=== PATIENT | female | born 1950 | race Caucasian/White ===

== ENCOUNTER 2017-01-03 09:38 | Outpatient (CLI) | payer MEDICARE, MEDICAID ==
--- NOTE | 2017-01-03 15:13 | MRI ---
MRI LEFT SHOULDER WITHOUT CONTRAST: Date: 01/03/17 HISTORY: Left shoulder pain, M25.512. Loss of range of motion for 2-3 months. COMPARISON: None. FINDINGS: Biceps Tendon: There is extensive extra-articular biceps tenosynovitis. There is interstitial tearing of the extra- articular biceps tendon. There is also extensive interstitial tearing of the intra-articular biceps tendon with likely a complete tear of the interarticular tendon with waviness. Labrum: There is tearing at the anterior and superior labrum extending to the biceps labral anchor. Rotator Cuff: There is a focal central perforation of the supraspinatus tendon mid fibers measuring approximately 1.0 cm in AP dimension at the footplate with some retraction of fibers approximately 8.0 mm. There i s extensive undersurface tearing of the remainder of the supraspinatus and infraspinatus tendon with some early scar in situ. There is extensive interstitial and undersurface tearing of the subscapula ris. Muscles: There is 30-40% atrophy of the supraspinatus. There is also atrophy of the teres minor. Bones: Large subchondral cyst formation and osteophyte formation at the anterior glenoid. There are also sm all osteophytes of the humeral head/neck. Moderate osteoarthritic disease of the acromioclavicular joint. Soft Tissues: There is edema of the rotator interval, as well as scarring along the rotator interval and abnormal thickening of the inferior glenohumeral ligament. Large subacromial/subdeltoid bursal effusion. IMPRESSION: 1. Complete muscle atrophy of the teres minor can be seen with quadrilateral space syndrome. No mas s is seen on this examination. 2. Focal full thickness perforation of the supraspinatus mid 1.0 cm fibers with 30-40% atrophy of t he muscle. 3. Extensive interstitial and deep tearing of the subscapularis. 4. Extensive tenosynovitis of the extra-articular biceps tendon with likely an intr-aarticular full thickness tear with scarring. 5. Superior labral tear from 11-1 o'clock seen to the biceps labral anchor. 6. Subchondral cyst formation inferior glenoid along with humeral head/neck junction. 7. Capsulitis. 8. Large subacromial/subdeltoid bursal effusion. 9. Extensive tendinosis and undersurface tearing at the supraspinatus and infraspinatus tendons. POS: [facility]
== END 2017-01-03 09:39 | disposition home or self-care (01) ==
LOC: SCSMRI 09:38
PROVIDERS: ATTEND Internal Medicine
DX: M25.512 Pain in left shoulder (principal); S43.492A Other sprain of left shoulder joint, initial encounter; M75.02 Adhesive capsulitis of left shoulder; M25.412 Effusion, left shoulder; M65.812 Other synovitis and tenosynovitis, left shoulder; S46.212A Strain of muscle, fascia and tendon of other parts of biceps, left arm, initial encounter

== ENCOUNTER 2017-01-21 18:11 | Inpatient (IN) | payer MEDICARE, MEDICAID ==
[2017-01-21] MEDS ORDERED: methylPREDNISolone Sod Succ/PF 125 MG/2 ML VIAL ONE (20:26)
[2017-01-21] MEDS ORDERED: Water For Inject, Bacteriostat 30 ML ONE (20:26)
--- NOTE | 2017-01-21 20:28 | RAD ---
FRONTAL RADIOGRAPH CHEST 01/21/17 COMPARISON: 01/18/17 HISTORY: Weakness. FINDINGS: No pneumothorax, pleural fluid, focal consolidation or alveolar edema. Heart and mediastinal contour s are unremarkable. IMPRESSION: No acute findings. POS: [facility]
[2017-01-21 20:31] LABS: Hematocrit 29.5 % (36.0-47.0); Mean Platelet Volume 11.3 fL (7.4-10.4); Red Blood Cell (RBC) Count 3.01 mill/uL (4.20-5.40)
[2017-01-21 20:42] LABS: Lactic Acid - Sepsis 1.6 mmol/L (0.5-2.2)
[2017-01-21 20:49] LABS: Band 14 % (5-11); Neutrophil 79 % (42-75)
[2017-01-21 20:52] LABS: Troponin I 0.075 ng/mL (< 0.028)
[2017-01-21 20:54] LABS: ALT (SGPT) 44 U/L (8-55); AST (SGOT) 14 U/L (5-34); Alkaline Phosphatase 139 U/L (40-150); BUN (Urea Nitrogen) 47 mg/dL (9.8-20.1); Bilirubin, Total 1.7 mg/dL (0.2-1.2); CK (CPK) 26 U/L (29-168); Calc. Creatinine Clearance 0 mL/min (70-130); Calcium 7.5 mg/dL (7.8-10.44); Carbon Dioxide 23 mmol/L (23-31); Chloride 102 mmol/L (98-107); Estimated GFR-MDRD 59; Globulin 2.7 g/dL (2.4-3.5); Lipase 17 U/L (8-78); Magnesium 1.9 mg/dL (1.6-2.6)
[2017-01-21 20:57] LABS: Bilirubin Small (Negative); Blood, Urine Negative (Negative); Glucose, Urine (Dipstick) Negative (Negative); Ketone, Urine Negative (Negative); Nitrite Negative (Negative); Protein, Urine (Dipstick) Negative (Neg-Trace)
[2017-01-21 20:57] LABS: Anion Gap 13 mmol/L (10-20)
[2017-01-21 20:59] LABS: Bacteria/HPF None Seen HPF (None Seen); Hyaline Casts/LPF 7-10 HYALINE CAST LPF (0-3 Hyaline); Squamous Epithelial 0-3 HPF (0-3); WBC/HPF 0-3 HPF (0-3)
[2017-01-21] MEDS ORDERED: Vancomycin HCl 1.5 GM in Sodium Chloride 0.9% 250 ML 300 ML IVPB SCH (21:15)
[2017-01-21 22:13] LABS: Fibrinogen 261 mg/dL (253-463); PTT 30.9 SEC (22.9-36.1); Prothrombin Time 15.3 SEC (12.0-14.7)
--- NOTE | 2017-01-21 23:29 | RAD ---
FRONTAL RADIOGRAPH CHEST PORTABLE UPRIGHT 01/21/17, 10:41 P.M. COMPARISON: 01/21/17, 8:12 p.m. HISTORY: Evaluate chest following line placement. FINDINGS: There is a new right sided vascular catheter, distal tip overlying the region of the cavoatrial junc tion. No pneumothorax, pleural fluid, lobar consolidation, or alveolar edema. IMPRESSION: No acute findings. POS: [facility]
[2017-01-21] MEDS ORDERED: Norepinephrine 8 MG/0.9% NS 0 ML ONE (23:34)
[2017-01-21] MEDS ORDERED: Norepinephrine 8 MG/0.9% NS 250 ML ONE (23:34)
[2017-01-22] MEDS ORDERED: Ondansetron HCl/PF 4 MG/2 ML Vial IVP PRN (00:10)
[2017-01-22] MEDS ORDERED: Acetaminophen 325 MG TAB PO PRN (00:10)
[2017-01-22] MEDS ORDERED: Norepinephrine 8 MG/0.9% NS 250 ML IVPB SCH (00:15)
[2017-01-22] MEDS ORDERED: Sodium Chloride 0.9% 1,000 ML IV SCH (00:15)
[2017-01-22] MEDS ORDERED: Potassium Chloride 20 MEQ TAB PO SCH (00:45)
[2017-01-22 01:16] LABS: IRF 0.488 Ratio (0.163-0.362); Reticulocyte Count 1.2 % (0.5-1.5)
[2017-01-22 01:32] LABS: Band 23 % (5-11); Hematocrit 33.5 % (36.0-47.0); Mean Platelet Volume 10.8 fL (7.4-10.4); Metamyelocyte 1 % (0-0); Neutrophil 72 % (42-75); Red Blood Cell (RBC) Count 3.42 mill/uL (4.20-5.40); White Blood Cell (WBC) Count 21.8 thou/uL (4.8-10.8)
[2017-01-22 01:39] LABS: Troponin I 0.056 ng/mL (< 0.028)
[2017-01-22] MEDS: Sodium Chloride 0.9% 1,000 ML IV SCH ×3 (02:10→17:57)
[2017-01-22 02:24] VITALS: BMI 31.6
[2017-01-22 04:59] LABS: ALT (SGPT) 38 U/L (8-55); AST (SGOT) 14 U/L (5-34); Alkaline Phosphatase 125 U/L (40-150); Anion Gap 14 mmol/L (10-20); BUN (Urea Nitrogen) 38 mg/dL (9.8-20.1); Bilirubin, Total 1.1 mg/dL (0.2-1.2); Calc. Creatinine Clearance 95 mL/min (70-130); Carbon Dioxide 19 mmol/L (23-31); Chloride 105 mmol/L (98-107); Estimated GFR-MDRD 74; Globulin 2.5 g/dL (2.4-3.5); Protein, Total 4.8 g/dL (6.0-8.3)
[2017-01-22 05:09] LABS: Band 18 % (5-11); Hematocrit 31.2 % (36.0-47.0); Mean Platelet Volume 10.6 fL (7.4-10.4); Neutrophil 78 % (42-75); Red Blood Cell (RBC) Count 3.18 mill/uL (4.20-5.40); White Blood Cell (WBC) Count 19.8 thou/uL (4.8-10.8)
[2017-01-22] MEDS ORDERED: ISOVUE-370 76%-LOCM 1 ML ONE (07:42)
--- NOTE | 2017-01-22 08:17 | ULT ---
RIGHT UPPER QUADRANT SONOGRAM: HISTORY: Right upper quadrant pain. FINDINGS: The gallbladder is surgically absent. The common duct is 0.6 cm in diameter. The liver is unremark able without focal mass or intrahepatic biliary dilatation. No free fluid is visible. IMPRESSION: Status post cholecystectomy. No significant abnormalities are demonstrated. POS: [facility]
--- NOTE | 2017-01-22 08:25 | CT ---
PRELIMINARY REPORT/[facility]/EMERGENCY AFTER HOURS PROCEDURE: EXAM: CT Angiography Chest With Intravenous Contrast CLINICAL HISTORY: 66 years old, female; Abnormal findings; Abnormal diagnostic tests; Elevated d-dimer; Patient HX: Er 8; D-dimer 2.78; 66 y/o f with presentation of weakness. Pt reports that she fell x2 yesterday due to weakness and is currently taking keflex for uti. Pt also reports rash, loss of appetite, and chills. Denies fever, pain anywhere, dysuria, any other complaints. TECHNIQUE: Axial computed tomographic angiography images of the chest with intravenous contrast using pulmonary embolism protocol. Oblique reformatted images were created and reviewed. CONTRAST: 58 mL of ISOVURE 370 administered intravenously. COMPARISON: No relevant prior studies available. FINDINGS: No definite filling defect to suggest the diagnosis of acute pulmonary embolus. No evidence of thoracic aortic dissection or focal aneurysm. Coronary artery calcifications are noted in the proximal left main coronary artery. No significant hilar or mediastinal lymphadenopathy. No evidence for pneumomediastinum or pneumothorax. Right lung: No significant parenchymal opacity or mass. No pleural fluid. Left lung: No significant parenchymal opacity or mass. No pleural fluid. Right jugular central venous catheter present, tip in the SVC. Images that include the upper abdomen appear essentially unremarkable. IMPRESSION: No evidence of acute pulmonary embolus. No evidence of thoracic aortic dissection or focal aneurysm. Coronary artery calcifications, details above. Essentially clear lungs, no pleural fluid. Other findings discussed above. Thank you for allowing us to participate in the care of your patient. Dictated and Authenticated by: Chance Jauregui MD 01/22/2017 2:37 AM Central Time ([place] \T\ [place]) FINAL REPORT CT ARTERIOGRAM CHEST WITH IV CONTRAST AND 3D MIP IMAGIN01/22/2017 0134 HOURS HISTORY: Performed on an emergency basis. Chest pain. Dyspnea. COMPARISON: None. FINDINGS: The findings agree with the preliminary report by Dr. Jauregui from [facility]. There is no CT evidence of pulmonary embolus. POS: [facility]
[2017-01-22] MEDS ORDERED: Famotidine/PF 20 mg/2ml Vial SLOW IVP SCH (09:00)
[2017-01-22] MEDS ORDERED: FLU VACC TS2017-18 (>65YR) 0.5 ML SYRINGE IM ONE (09:00)
[2017-01-22] MEDS: Vancomycin HCl 1.25 GM in Sodium Chloride 0.9% 250 ML 250 ML IVPB SCH ×2 (09:53→20:26)
[2017-01-22] MEDS: Famotidine 20 MG TAB PO SCH ×2 (09:54→20:20)
--- NOTE | 2017-01-22 12:59 | CON ---
DATE OF CONSULTATION: 01/22/2017 CONSULTING PHYSICIAN: [facility]. REASON FOR CONSULTATION: Hypotension. HISTORY OF PRESENT ILLNESS: The patient is a 66-year-old female who presented to the emergency room yesterday with generalized weakness. The patient had been diagnosed with urinary tract infection i n [place] several days ago and had been taking some antibiotics at home. She was found to be hypote nsive last night. She had a central line inserted. She was given fluids and was briefly on Levophe d, she is now better this morning. PAST MEDICAL HISTORY: 1. Chronic fatigue syndrome. 2. Arthritis. She denies any history of cardiovascular disease or COPD. PAST SURGICAL HISTORY: Cholecystectomy. SOCIAL HISTORY: Quit smoking 8 years ago. Does not consume alcohol. She lives at home by herself. ALLERGIES: None. MEDICATIONS PRIOR TO ADMISSION: [place], Vicoprofen and amlodipine and pramipexole. REVIEW OF SYSTEMS: Denies fever, chills, nausea, vomiting, chest pain, hematemesis, melena, hematoc hezia, hematuria, or dysuria. PHYSICAL EXAMINATION: VITAL SIGNS: Temperature 97.7, pulse 92, blood pressure 105/67, 24-hour intake 1187, output 350. HEENT: Unremarkable. NECK: Without adenopathy or JVD. She has a right IJ central line in place. LUNGS: Clear. CARDIOVASCULAR: S1, S2 regular, without murmur, rub or gallop. ABDOMEN: Soft and nontender. EXTREMITIES: Without clubbing, cyanosis, or edema. LABORATORY DATA: White blood cell count 19.8, hemoglobin 10, hematocrit 31.2, platelet count 79. I NR 1.2, PTT 30.9. Sodium 134, potassium 3.8, chloride 105, CO2 of 19, BUN 38, creatinine 0.7, gluco se 160. Albumin 4.8. Urinalysis showed some hyaline casts, moderate leukocyte esterase. ASSESSMENT: Sepsis syndrome/septic shock which is improved with IV fluid administration and the ant ibiotics. She has been weaned off the Levophed drip. RECOMMENDATIONS: I would recommend that the central line will be discontinued this afternoon if her blood pressure remains stable. I think she can probably be transferred to floor later this afterno on. I would continue her antibiotics. Thank you for the referral. We will follow.
[2017-01-22] MEDS: cefTRIAXone\\ROCEPHIN 1 GM, Syringe 0.4 ML in Sterile Water 9.6 ML IVPB SCH (20:21)
--- NOTE | 2017-01-22 23:36 | HP-2 ---
LOCATION: [facility] at [place], [place]. CO-SIGNER: Dr. David Galindo. CODE STATUS: FULL CODE. PRIMARY CARE PHYSICIAN: QUENTIN. ATTENDING PHYSICIAN: Dr. David Galindo. RESIDENT PHYSICIAN: Dr. Alvino Velasquez. HISTORIAN: Patient provided the history. CHIEF COMPLAINT: Weakness. HISTORY OF PRESENT ILLNESS: A 66-year-old female with past medical history of recent UTI, started o n Keflex approximately 2 weeks ago as well as history of chronic fatigue syndrome, osteoarthritis an d fibromyalgia, presents with a chief complaint of weakness. The patient reports signs and symptoms of weakness and dizziness have been present for about 2 weeks. It occurred shortly after she was d iagnosed with UTI and started on Keflex for treatment. Additionally, the patient complains of 1-2 d ay history of truncal rash. She denies itching or pain associated with the rash. The patient also admitted decreased appetite and poor p.o. intake over the last 2 weeks. The remainder of the review of systems is grossly benign. In the ER, the patient was given 3 liters of normal saline, 750 mg o f Levaquin, 2 grams of Rocephin, 1.5 grams of vancomycin and 125 mg of methylprednisolone. PAST MEDICAL HISTORY: Chronic fatigue syndrome, osteoarthritis and fibromyalgia. PAST SURGICAL HISTORY: Cholecystectomy. ALLERGIES: No known drug allergies. MEDICATIONS: 1. Vicoprofen 7.5/200 mg b.i.d. 2. [place] 10/325 q.8 hours p.r.n. 3. Black cohosh 20 mg p.r.n. 4. Benadryl 25 mg. 5. Keflex 500 mg q.6 hours. FAMILY HISTORY: Deferred. SOCIAL HISTORY: Prior smoker, nondrinker, no drugs. REVIEW OF SYSTEMS: GENERAL: Patient complains of fatigue, chills and appetite changes. Denies fever, sleep changes or night sweats. EYES: Patient denies vision changes. ENT: Denies nasal congestion, rhinorrhea or sore throat. RESPIRATORY: Denies cough, congestion or shortness of breath. CARDIOVASCULAR: Denies chest pain, palpitations or edema. GASTROINTESTINAL: Denies nausea, vomiting, diarrhea, constipation, abdominal pain or GI bleeding. SKIN: Complains of jaundice and rashes. Denies lesions. MUSCULOSKELETAL: Complains of pain, arthritis and arthralgias at her baseline. NEUROLOGIC: Complains of weakness. Denies numbness or syncope. PHYSICAL EXAMINATION: VITAL SIGNS: Blood pressure in the ED 88/56, pulse 95 beats per minute, respirations 16, T-max 97.7 , pulse ox 100% on room air and current weight 79 kilograms. GENERAL: The patient is alert and oriented x3, mildy distressed, well-developed, well-nourished and appropriately interactive. HEENT: Pupils are equal, round and reactive to light with accommodation. Extraocular muscles are i ntact. There is conjunctival icterus present. NECK: Supple, without lymphadenopathy, no thyromegaly. CARDIOVASCULAR: Regular rate and rhythm. No murmurs, rubs or gallops. Radial pulse 2+. Pedal pul se 2+. RESPIRATORY: Normal effort, no retractions. LUNGS: Clear to auscultation bilaterally. SKIN: Warm and dry. No cyanosis. There is a truncal erythematous maculopapular rash that is sloane hable as well as the lower extremity reticular pattern rash. ABDOMEN: Soft and nontender. Normoactive bowel sounds in all 4 quadrants. No masses, distention o r organomegaly appreciated. No shifting dullness. No fluid wave. EXTREMITIES: No clubbing, cyanosis or edema. MUSCULOSKELETAL: Structure is within normal limits. Tone within normal limits. NEUROLOGIC: No focal deficits. Sensation within normal limits. GCS 15. PSYCH: Appropriate. LABORATORY DATA: White blood cell count 23,000, hemoglobin 9.6, hematocrit 29.5 and platelets 85. Sodium 135, potassium 3.3, chloride 102, bicarbonate 23, BUN 47, creatinine 0.95, glucose 114, GFR i s 59, calcium 7.5, total protein 5.0, albumin 2.3, total bilirubin 1.7, AST 14, ALT 44, alkaline isacc sphatase 139, magnesium 1.9, lactic acid 1.6, lipase 17, troponin 0.075, CK-MB 2.1 and CK 26. 79% b ands and 14% neutrophils. Urinalysis showed moderate leukocyte esterase, 0 bacteria and small amoun t of bilirubin in the urine. X-RAY FINDINGS: Chest x-ray showed no acute findings. ASSESSMENT AND PLAN: 1. Septic shock, unknown source. Will continue broad-spectrum antibiotics. Patient will be admitt ed to the ICU and a right subclavian central venous line will be placed and patient will be given Le vophed to maintain a map greater than or equal to 60. Patient has a recent history of elevated LFTs that were not worked up. We will get a hepatitis panel; do a right upper quadrant ultrasound. Rep eat CMP, coag studies, check TSH, check a sedimentation rate as well as CRP and LUCY. 2. Normocytic anemia. Rule out hemolytic anemia. Bilirubin is 1.6. We will repeat a.m. CBC. We will check an LDH, haptoglobin. We will order peripheral smear, check Maxine direct antibody, check a reticulocyte count as well as a CRP, ESR and LUCY. 3. Thrombocytopenia. There is no evidence of active bleeding. We will check a DIC panel to rule o ut DIC. 4. Hyperbilirubinemia. We will rule out hepatic versus hemolytic anemia source. Order right upper quadrant ultrasound. 5. Elevated D-dimer. CTA of the chest. 6. Protein-calorie malnutrition. Albumin is 2.3. It is unclear if this is a simply ingestion issu e or a combination of ingestion and malabsorption. 7. Rash. We will check an RPR, HIV, ESR, CRP and LUCY. DISPOSITION AND THE LENGTH OF HOSPITAL STAY: Patient is guarded. Expected length of stay is greate r than or equal to 2 days. Symptomatic medications will be provided. History and physical exam as well as management was discussed with Dr. David Galindo who agrees wi th the above history, physical exam, assessment and plan unless otherwise noted in his addendum.
[2017-01-23] MEDS: Sodium Chloride 0.9% 1,000 ML IV SCH ×3 (01:21→14:37)
[2017-01-23 05:17] LABS: ALT (SGPT) 30 U/L (8-55); AST (SGOT) 14 U/L (5-34); Alkaline Phosphatase 104 U/L (40-150); Anion Gap 9 mmol/L (10-20); BUN (Urea Nitrogen) 23 mg/dL (9.8-20.1); Bilirubin, Total 0.9 mg/dL (0.2-1.2); Calc. Creatinine Clearance 109 mL/min (70-130); Calcium 6.9 mg/dL (7.8-10.44); Carbon Dioxide 20 mmol/L (23-31); Chloride 111 mmol/L (98-107); Estimated GFR-MDRD 88; Globulin 2.4 g/dL (2.4-3.5); Protein, Total 4.6 g/dL (6.0-8.3)
[2017-01-23 05:28] LABS: Band 22 % (5-11); Hematocrit 27.9 % (36.0-47.0); Mean Platelet Volume 10.5 fL (7.4-10.4); Neutrophil 68 % (42-75); Red Blood Cell (RBC) Count 2.82 mill/uL (4.20-5.40); Toxic Granulation SLIGHT; White Blood Cell (WBC) Count 13.6 thou/uL (4.8-10.8)
--- NOTE | 2017-01-23 07:26 | PDOC.FM ---
- Subjective Subjective: Pt feels better than yesterday but still tired. Has not been out of bed and using bedpan currently. Requesting PT eval. States new mouth sores at corner of her mouth present today although dry skin only seen. Afebrile. Tolerating PO. Rash improving per pt. - Objective MAR Reviewed: Yes Vital Signs & Weight: Vital Signs (12 hours) Temp Pulse Resp BP Pulse Ox 01/23/17 04:00 97.5 F L 82 20 92/68 98 01/23/17 00:07 92 L 01/22/17 23:45 97.8 F 70 18 102/58 L 92 L 01/22/17 21:30 97.8 F 70 18 107/68 93 L Weight Admit Weight 83.6 kg Weight 82.735 kg Most Recent Monitor Data Heart Rate from ECG 88 NIBP 93/63 NIBP BP-Mean 78 Respiration from ECG 21 SpO2 97 I&O: 01/22/17 01/23/17 01/24/17 07:59 06:59 06:59 Intake Total Output Total Balance Result Diagrams: 01/23/17 04:32 01/23/17 04:32 EKG Reviewed by me: Yes Radiology Reviewed by me: Yes <Rad Amaya - Last Filed: 01/23/17 07:25> - Objective Vital Signs & Weight: Vital Signs (12 hours) Temp Pulse Resp BP Pulse Ox 01/23/17 07:05 97.0 F L 71 18 105/71 92 L 01/23/17 04:00 97.5 F L 82 20 92/68 98 01/23/17 00:07 92 L 01/22/17 23:45 97.8 F 70 18 102/58 L 92 L Weight Admit Weight 184 lb 4.896 oz Weight 182 lb 6.4 oz Most Recent Monitor Data Heart Rate from ECG 88 NIBP 93/63 NIBP BP-Mean 78 Respiration from ECG 21 SpO2 97 I&O: 01/22/17 01/23/17 01/24/17 07:59 06:59 06:59 Intake Total Output Total Balance Result Diagrams: 01/23/17 04:32 01/23/17 04:32 <David Galindo - Last Filed: 01/23/17 10:40> Phys Exam - Physical Examination Constitutional: NAD HEENT: PERRLA, moist MMs Neck: no nodes, supple Respiratory: no wheezing, no rales, clear to auscultation bilateral Cardiovascular: RRR, no significant murmur Gastrointestinal: soft, non-tender, no distention, positive bowel sounds Musculoskeletal: no edema, pulses present Neurological: non-focal, moves all 4 limbs Psychiatric: A&O x 3 Deviation from normal: resolving maculopapular rash over b/l thighs and abdomen ; much improved now <Rad Amaya - Last Filed: 01/23/17 07:25> Dx/Plan (1) Septic shock due to undetermined organism Code(s): A41.9 - SEPSIS, UNSPECIFIED ORGANISM; R65.21 - SEVERE SEPSIS WITH SEPTIC SHOCK Status: Acute Plan: Presented with hypotension requiring pressors and leukocytosis with bands. CCU with central line but now d/c'ed and moved to floor. Mildly hypotensive but not requiring pressors. Still evaluating for source of infection. WBCs 23->13 but bandemia persists. Pt slowly feeling better. Rash appears to me related to recent cephalosporin use and/or viral exanthem rather than vasculitis or infectious picture. Continue IV abx and fluids. Await multiple tests. Dr. Mayo on board although no pulm/cardiac etiology suspected. (2) Chronic fatigue syndrome with fibromyalgia Code(s): R53.82 - CHRONIC FATIGUE, UNSPECIFIED; M79.7 - FIBROMYALGIA Status: Acute Plan: Hx of this. Symptoms of continued fatigue are her main complaint. Continue workup. (3) Conjugated hyperbilirubinemia Code(s): E80.6 - OTHER DISORDERS OF BILIRUBIN METABOLISM Status: Acute Plan: Recent hx of elevated AST/ALT in 100s at outside facility and T. bili elevated as well. Here, T. bili 2.0 and D. bili 1.0. Both have now normalized. With other signs concerning for hemolysis, this confounds. RUQ U/S negative. Hep panel neg. Await autoimmune studies, celiac, ferritin. (4) Normocytic anemia Code(s): D64.9 - ANEMIA, UNSPECIFIED Status: Acute Plan: With reticulocytopenia. Appears most likely post-infectious. Iron studies pending as well as B12, RBC folate. (5) Thrombocytopenia Code(s): D69.6 - THROMBOCYTOPENIA, UNSPECIFIED Status: Acute Plan: DIC suspected initially in light of elevated D-dimer but not likely unless considering chronic DIC with lab results. May be post-infectious as well. Await peripheral smear. May repeat DIC panel today although hemolysis labs negative currently. Platelets remain stable. (6) Hypoalbuminemia Code(s): E88.09 - OTH DISORDERS OF PLASMA-PROTEIN METABOLISM, NEC Status: Acute Plan: Very low. May be poor nutrition. Cont eval for liver pathology. (7) Drug reaction Code(s): T88.7XXA - UNSP ADVERSE EFFECT OF DRUG OR MEDICAMENT, INIT ENCNTR Status: Acute Plan: Suspect rash is from drug reaction or viral exanthem. Resolving. (8) D-dimer, elevated Code(s): R79.89 - OTHER SPECIFIED ABNORMAL FINDINGS OF BLOOD CHEMISTRY Status : Acute Plan: See above. No PE on CTA. No other blood clots suspected at this time. (9) Reticulocytopenia Code(s): R70.1 - ABNORMAL PLASMA VISCOSITY Status: Acute Plan: See above. (10) Fibromyalgia Status: Acute Plan: See #2. <Rad Amaya - Last Filed: 01/23/17 07:25> Attending Addendum - Attending Addendum I personally evaluated the patient and discussed the management with . [Chey Amaya] I agree with the History, Examination, Assessment and Plan documented above with any addition or exceptions noted below. Labs normalizing. Multiple other labs pending to determine etiology. PT today. <David Galindo - Last Filed: 01/23/17 10:40>
[2017-01-23 08:22] LABS: PTT 31.4 SEC (22.9-36.1); Prothrombin Time 16.1 SEC (12.0-14.7)
[2017-01-23] MEDS: Famotidine 20 MG TAB PO SCH (09:11)
[2017-01-23] MEDS: Vancomycin HCl 1.25 GM in Sodium Chloride 0.9% 250 ML 250 ML IVPB SCH (09:17)
--- NOTE | 2017-01-23 11:33 | PRG ---
DATE OF SERVICE: 01/23/2017 SUBJECTIVE: She says she feels better. OBJECTIVE: VITAL SIGNS: Temperature is 97.0, pulse 71, respirations 18, O2 sat 92%, and blood pressure 105/71. HEENT: Unremarkable. NECK: No JVD. CHEST: Fairly clear. CARDIAC: S1 and S2 regular. ABDOMEN: Soft. EXTREMITIES: No edema. LABORATORY DATA: White blood cell count 13.6, hematocrit 27.9, and platelet count 82. INR 1.3. So dium 136, potassium 3.8, BUN 23, creatinine 0.6, and glucose 117. Vitamin B12 level is greater than 2000. ASSESSMENT: Sepsis syndrome which improved after IV fluids. PLAN: She is continuing antibiotics. So far cultures show no growth to date. The source for jono parnell is not completely clear, but I do not think her antibiotics could likely be consolidated. Hopeful ly, she can go home tomorrow.
[2017-01-23 20:27] LABS: Vancomycin, Trough 17.6 ug/mL
[2017-01-23] MEDS: cefTRIAXone\\ROCEPHIN 1 GM, Syringe 0.4 ML in Sterile Water 9.6 ML IVPB SCH (20:32)
[2017-01-23] MEDS ORDERED: Pramipexole Di-HCl 0.25 MG TAB PO SCH (21:00)
[2017-01-24 05:34] LABS: ALT (SGPT) 32 U/L (8-55); AST (SGOT) 16 U/L (5-34); Alkaline Phosphatase 122 U/L (40-150); Anion Gap 12 mmol/L (10-20); BUN (Urea Nitrogen) 16 mg/dL (9.8-20.1); Calc. Creatinine Clearance 105 mL/min (70-130); Calcium 7.5 mg/dL (7.8-10.44); Carbon Dioxide 19 mmol/L (23-31); Chloride 109 mmol/L (98-107); Estimated GFR-MDRD 84; Globulin 2.8 g/dL (2.4-3.5); Protein, Total 5.3 g/dL (6.0-8.3)
[2017-01-24 05:51] LABS: Band 9 % (5-11); Hematocrit 33.8 % (36.0-47.0); Mean Platelet Volume 9.2 fL (7.4-10.4); Metamyelocyte 1 % (0-0); Neutrophil 76 % (42-75); Red Blood Cell (RBC) Count 3.43 mill/uL (4.20-5.40); White Blood Cell (WBC) Count 11.9 thou/uL (4.8-10.8)
--- NOTE | 2017-01-24 09:11 | PRG ---
DATE OF SERVICE: 01/24/2017 She feels better. She wants to go home. PHYSICAL EXAMINATION: VITAL SIGNS: Temperature 97.9, pulse 72, respirations 18, O2 sat 95%, blood pressure 120/66. HEENT: Unremarkable. NECK: No JVD. CHEST: Clear. CARDIAC: S1, S2 regular. ABDOMEN: Soft. EXTREMITIES: No edema. LABORATORY DATA: White blood cell count 11.9, hematocrit 33.8, platelet count 115. Sodium 136, pot assium 3.9, chloride 109, CO2 of 19, BUN 16, creatinine 0.7, glucose 94. Micro cultures show no jasen wth to date. ASSESSMENT: Sepsis syndrome - better; however, source unclear. PLAN: She does look stable enough to go home. I would complete 7 days of antibiotics -cephalospori ns should be good enough. She can follow up with her primary care doctor. Pulmonary will sign off the case.
[2017-01-24] MEDS ORDERED: Loperamide HCl 2 MG CAP PO PRN (10:27)
--- NOTE | 2017-01-24 10:29 | PDOC.FM ---
- Subjective Subjective: Patient reports she feels much better this morning. She is back to baseline and her fatigue is improved. Afebrile, VSS - Objective MAR Reviewed: Yes Vital Signs & Weight: Vital Signs (12 hours) Temp Pulse Resp BP Pulse Ox 01/24/17 07:25 97.9 F 72 18 121/66 95 01/24/17 07:05 97.9 F 72 18 95 01/24/17 05:27 94 L 01/24/17 05:03 97.5 F L 78 20 142/74 H 94 L 01/24/17 02:02 97.9 F 92 18 116/66 93 L Weight Admit Weight 83.6 kg Weight 82.735 kg Most Recent Monitor Data Heart Rate from ECG 88 NIBP 93/63 NIBP BP-Mean 78 Respiration from ECG 21 SpO2 97 I&O: 01/23/17 01/24/17 01/25/17 06:59 06:59 06:59 Intake Total Output Total Balance Result Diagrams: 01/24/17 05:10 01/24/17 05:09 <Juanito Ramos - Last Filed: 01/24/17 10:28> - Objective Vital Signs & Weight: Vital Signs (12 hours) Temp Pulse Resp BP Pulse Ox 01/24/17 07:25 97.9 F 72 18 121/66 95 01/24/17 07:05 97.9 F 72 18 95 01/24/17 05:27 94 L 01/24/17 05:03 97.5 F L 78 20 142/74 H 94 L 01/24/17 02:02 97.9 F 92 18 116/66 93 L Weight Admit Weight 83.6 kg Weight 82.735 kg Most Recent Monitor Data Heart Rate from ECG 88 NIBP 93/63 NIBP BP-Mean 78 Respiration from ECG 21 SpO2 97 I&O: 01/23/17 01/24/17 01/25/17 06:59 06:59 06:59 Intake Total Output Total Balance Result Diagrams: 01/24/17 05:10 01/24/17 05:09 <Nydia Walton - Last Filed: 01/24/17 11:33> Phys Exam - Physical Examination Constitutional: NAD HEENT: PERRLA, moist MMs Neck: no nodes, no JVD Respiratory: no wheezing, no rales, no rhonchi Cardiovascular: RRR, no significant murmur Gastrointestinal: soft, non-tender, no distention Neurological: moves all 4 limbs Psychiatric: normal affect, A&O x 3 <Juanito Ramos - Last Filed: 01/24/17 10:28> Dx/Plan (1) Septic shock due to undetermined organism Code(s): A41.9 - SEPSIS, UNSPECIFIED ORGANISM; R65.21 - SEVERE SEPSIS WITH SEPTIC SHOCK Status: Resolved Plan: Has resolved since admission after presenting with hypotension requiring pressor support. Central line has been discontinued and she is not requiring IVF. No source of infection found thus far, however flu screen not done. Leukocytosis has resolved. Will d/c IV abx and continue PO omnicef for 5 days (2) Chronic fatigue syndrome with fibromyalgia Code(s): R53.82 - CHRONIC FATIGUE, UNSPECIFIED; M79.7 - FIBROMYALGIA Status: Acute Plan: Patient reports more energy today and that she feels back to baseline (3) Conjugated hyperbilirubinemia Code(s): E80.6 - OTHER DISORDERS OF BILIRUBIN METABOLISM Status: Acute Plan: T. bili of 2.0 and D. bili of 1.0 on admission. Both have since normalized. RUQ U/S negative. Hep panel neg. Awaiting further autoimmune studies (4) Thrombocytopenia Code(s): D69.6 - THROMBOCYTOPENIA, UNSPECIFIED Status: Acute Plan: No longer concern for DIC. May be post-infectious etiology. We are awaiting peripheral smear. Platelets remain stable (5) Hypoalbuminemia Code(s): E88.09 - OTH DISORDERS OF PLASMA-PROTEIN METABOLISM, NEC Status: Acute Plan: Likely chronic issue 2/2 poor nutrition (6) D-dimer, elevated Code(s): R79.89 - OTHER SPECIFIED ABNORMAL FINDINGS OF BLOOD CHEMISTRY Status : Acute Plan: CTA negative - Plan Plan: d/c today on omnicef <Juanito Ramos - Last Filed: 01/24/17 10:28> Attending Addendum - Attending Addendum I personally evaluated the patient and discussed the management with Dr. Ramos on 01/24/17. I agree with the History, Examination, Assessment and Plan documented above with any addition or exceptions noted below. Markedly improved. Will discharge home on PO abx with close follow up. <Nydia Walton - Last Filed: 01/24/17 11:33>
[2017-01-24] MEDS ORDERED: Ibuprofen 800 MG TAB PO SCH (10:30)
[2017-01-24 13:27] VITALS: BP 137/72; TEMP 97.5
[2017-01-24 17:12] LABS: Folate,Hemolysate 352.3 ng/mL (Not Estab.); RBC Folate Test Component 1355 ng/mL (>498)
--- NOTE | 2017-01-25 19:31 | DIS-2 ---
DATE OF ADMISSION: 01/22/2017 DATE OF DISCHARGE: 01/24/2017 RESIDENT PHYSICIAN: Juanito Ramos M.D. ADMITTING ATTENDING: David Galindo M.D. DISCHARGE ATTENDING: Nydia Walton D.O. CONSULTS: 1. Pulmonology. 2. Physical therapy. PROCEDURES: Central line placed on 01/21/2017. PRIMARY DIAGNOSES: 1. Septic shock without a source. 2. Conjugated hyperbilirubinemia. 3. Elevated D-dimer. SECONDARY DIAGNOSES: 1. Chronic fatigue syndrome. 2. Fibromyalgia. 3. Normocytic anemia. 4. Osteoarthritis. DISCHARGE MEDICATIONS: 1. Amlodipine 2 mg p.o. daily. 2. Pramipexole 0.25 mg p.o. q.p.m. 3. Hydrocodone/acetaminophen 10/325 mg p.o. b.i.d. p.r.n. 4. Cefdinir 300 mg p.o. b.i.d. x5 days. DISCONTINUED MEDICATIONS: 1. Rocephin. 2. Levophed. 3. Vancomycin. 4. Levaquin. HISTORY OF PRESENT ILLNESS AND HOSPITAL COURSE: This is a 66-year-old female, presented to the ER with a chief complaint of fatigue and weakness. This issue has been slowly escalating for the last 2 weeks. This occurred shortly after she was diagnosed with UTI and started on Keflex. In the ER, the patient was evaluated and given 3 liters of normal saline, 750 mg of Levaquin, 2 grams Rocephin and 1.5 grams of vancomycin and 125 mg methylprednisolone. The patient was profoundly hypotensive, tachycardic and a central line was placed, and she required pressure support with Levophed. She was cultured at that time , and admitted to the ICU. Broad spectrum antibiotics were continued. After one night, the patient no longer required central line and was discontinued. The patient was moved out of the CCU on to the medical floor. All blood and urine cultures came back negative. Chest x-ray was normal. White blood cell count trended down, initially at 22,[address] down to 11, 000 upon discharge with resolving bandemia. The patient's normocytic anemia was worked up, does not appear to be hemolytic. Upon review of labs, haptoglobin and peripheral smear still pending at this time. CRP, ESR and LUCY all within normal limits. Thrombocytopenia diagnosed upon admission, no evidence of active bleeding. DIC has been ruled out. This is most likely post-infectious etiology. Peripheral smear is pending. Her chronic fatigue syndrome with fibromyalgia, was back to baseline on the day of discharge, she was reporting greater energy levels, tolerating p.o., ambulating without pain or dyspnea. D-dimer was elevated on admission. Pulmonary embolism was ruled out with CTA. There are multiple labs still pending, haptoglobin, peripheral smear, IgG antibodies, tissue transglutaminase. However, patient is back to baseline, she will follow up with her PCP in the [place] area as soon as possible. DISPOSITION: Stable. DISCHARGE INSTRUCTIONS: 1. Location: Home. 2. Diet: Regular. 3. Activity: As tolerated. 4. Follow up with PCP in 2-3 days. BRIAN
--- NOTE | 2017-03-18 14:46 | EKG ---
Test Reason : Blood Pressure : / mmHG Vent. Rate : 095 BPM Atrial Rate : 095 BPM P-R Int : 144 ms QRS Dur : 098 ms QT Int : 446 ms P-R-T Axes : 075 061 049 degrees QTc Int : 560 ms Normal sinus rhythm Nonspecific T wave abnormality Prolonged QT Abnormal ECG Confirmed by JOVANNY PERALTA, CELSO Christensen ([id number]), health editor CLEO SAHU ([id number]) on 03/18/2017 2:45:36 PM Referred By: Confirmed By:CELSO PETTY MD
== END 2017-01-24 14:54 | disposition home or self-care (01) | DRG 871 ==
LOC: ERS 18:11 → CCU 01-22 01:46 → 2NO 01-22 21:40
PROVIDERS: ADMIT Family Medicine; ATTEND Family Medicine
PROC: 02HV33Z Insertion of Infusion Device into Superior Vena Cava, Percutaneous Approach (ICD-10-PCS; principal; 2017-01-22)
DX: A41.9 Sepsis, unspecified organism (principal); R65.21 Severe sepsis with septic shock; E46 Unspecified protein-calorie malnutrition; I95.9 Hypotension, unspecified; D69.6 Thrombocytopenia, unspecified; E88.09 Other disorders of plasma-protein metabolism, not elsewhere classified; N39.0 Urinary tract infection, site not specified; R53.82 Chronic fatigue, unspecified; Z90.49 Acquired absence of other specified parts of digestive tract; Z87.891 Personal history of nicotine dependence; D64.9 Anemia, unspecified; E80.6 Other disorders of bilirubin metabolism; R21 Rash and other nonspecific skin eruption; M79.7 Fibromyalgia; M19.90 Unspecified osteoarthritis, unspecified site; R79.89 Other specified abnormal findings of blood chemistry; R70.1 Abnormal plasma viscosity; Z68.31 Body mass index [BMI] 31.0-31.9, adult
CPT/HCPCS: 36415; 36556; 71010; 71275; 76705; 80053; 80202; 81003; 81015; 82248; 82553; 82607; 82728; 82747; 83010; 83540; 83550; 83605; 83615; 83690; 83735; 84443; 84484; 84550; 85007; 85025; 85027; 85046; 85049; 85060; 85300; 85362; 85379; 85384; 85610; 85652; 85730; 86038; 86140; 86430; 86704; 86706; 86708; 86780; 86803; 86880; 87040; 87086; 87340; 87389; 93005; 96361; 96365; 96366; 96367; 96368; 96375; A4216; G8978-GP-CL; G8979-GP-CJ; J0696; J1956; J2930; J3370; J7050; S0028

== ENCOUNTER 2018-06-01 14:09 | Outpatient (CLI) | payer MEDICARE, MEDICAID ==
--- NOTE | 2018-06-23 18:53 | MMO ---
Bilateral MAMMO Bilat Screen [facility]DI. CLINICAL HISTORY: Patient is 68 years old and is seen for screening. The patient has the following family history of breast cancer: mother, at age 56. The patient has no personal history of cancer. The patient has a history of left Excisional Biopsy in 1995 - benign. VIEWS: The views performed were: bilateral craniocaudal and bilateral mediolateral oblique. FILMS COMPARED: The present examination has been compared to prior imaging studies performed at [facility] on 10/25/2011, at [facility] on 09/20/2007 and 02/27/2009, and at [facility] on 01/13/2016 and 08/17/2016. This study has been interpreted with the assistance of computer-aided detection. MAMMOGRAM FINDINGS: The breasts are heterogeneously dense, which could obscure a lesion on mammography. There are no suspicious masses, suspicious calcifications, or new areas of architectural distortion. IMPRESSION: THERE IS NO MAMMOGRAPHIC EVIDENCE OF MALIGNANCY. A ROUTINE FOLLOW-UP MAMMOGRAM IN 1 YEAR IS RECOMMENDED. ACR BI-RADS Category 1 - Negative MAMMOGRAPHY NOTE: 1. A negative mammogram report should not delay a biopsy if a dominant of clinically suspicious mass is present. 2. Approximately 10% to 15% of breast cancers are not detected by mammography. 3. Adenosis and dense breasts may obscure an underlying neoplasm.
== END 2018-06-01 14:10 | disposition home or self-care (01) ==
LOC: SCSMAMMO 14:09
PROVIDERS: ATTEND Internal Medicine
DX: Z12.31 Encounter for screening mammogram for malignant neoplasm of breast (principal); Z80.3 Family history of malignant neoplasm of breast
CPT/HCPCS: 77067

== ENCOUNTER 2018-06-13 10:18 | Outpatient (CLI) | payer MEDICARE, MEDICAID ==
--- NOTE | 2018-06-13 11:13 | CT ---
EXAM: Low dose CT of the chest without contrast COMPARISON: None HISTORY: History of tobacco abuse. Cancer screening protocol. TECHNIQUE: Multiple contiguous axial images were obtained in a low-dose chest CT without contrast per cancer screening protocol. Sagittal and coronal reformats were performed. FINDINGS: Heart: Normal in size without obvious abnormality. Mediastinum: No obvious enlarged lymph nodes appreciated on this limited noncontrast examination. No pneumothorax or pleural effusion are seen. No focal infiltrates are seen in the lungs. Pulmonary nodule\s: None Bones: Degenerative changes are seen in the spine. Chest wall soft tissues: Unremarkable. Visualized upper abdominal organs: Unremarkable. The patient is status post cholecystectomy. IMPRESSION: Lung RADS category 1-negative.
== END 2018-06-13 10:19 | disposition home or self-care (01) ==
LOC: CT 10:18
PROVIDERS: ATTEND Internal Medicine
DX: Z87.891 Personal history of nicotine dependence (principal)
CPT/HCPCS: G0297

== ENCOUNTER 2018-07-11 12:27 | Outpatient (CLI) | payer MEDICARE, MEDICAID | END 2018-07-11 12:28 | disposition home or self-care (01) | PROVIDERS: ATTEND Internal Medicine | DX: R07.9 Chest pain, unspecified (principal); R00.2 Palpitations | CPT/HCPCS: 93017 ==

== ENCOUNTER 2019-11-27 09:29 | Outpatient (CLI) | payer MEDICARE, MEDICAID ==
--- NOTE | 2019-11-27 14:26 | MRI ---
MRI LUMBAR SPINE WITHOUT CONTRAST: 11/27/19 INDICATIONS: Intervertebral disc disorders with lumbar radiculopathy. Back pain. No comparison. FINDINGS: Moderate to severe degenerative changes are seen in the lumbar spine. Prominent anterior and lateral osteophytes. Degenerative disc changes at all levels with loss of disc space and degenerative disc an d end plate signal changes throughout. There is mild anterior wedging of the L4 vertebrae with loss o f anterior height estimated at 20%. End plate edema at all levels suggestive of degenerative end plat e change. T12-L1: No significant central canal or foraminal stenosis. L1-2: Slight posterolisthesis with broad based posterior disc bulge and posterior spurring. These alicia nges compress the thecal sac more prominent paracentrally to the left. Facet and ligamentous hypertro phy with posterior epidural fat. These changes compress the thecal sac resulting in moderate to sever e central canal stenosis. Left foraminal stenosis. L2-3: Posterior disc bulge and spurring. Prominent facet and ligamentous hypertrophy. These changes r esult in moderate to severe central canal stenosis. Bilateral foraminal stenosis. L3-4: Slight anterolisthesis. Posterior disc bulge and degenerative spurring compress the thecal sac. Prominent facet and ligamentous hypertrophy. Severe central canal stenosis. Mild to moderate bilater al foraminal narrowing. L4-5: Broad based disc bulge. There is asymmetric disc protrusion to the left which extends laterally to the left. There is also evidence of extruded disc extending inferiorly in the anterior spinal can al on the left into the left lateral recess. These changes result in severe central canal stenosis at the disc space and severe left foraminal stenosis. There is also moderately severe right foraminal s tenosis. There is abnormal signal seen in the anterior spinal canal on the right posterior to the L5 vertebra and this abnormal signal extends into the right neural foramina at L5-S1. This most likely represents a sequestered disc fragment probably from the L4-5 disc although I cannot confirm origin. Other soft tissue masses are not excluded. L5-S1: Broad based disc protrusion. Bilateral foraminal stenosis. Moderate central canal stenosis. IMPRESSION: Multilevel degenerative disc changes with moderate to severe central canal stenosis at multiple level s as described. There is foraminal stenosis as noted above. Abnormal signal seen in the anterior spinal canal on the left posterior to the L5 vertebra. This is s uggestive of a sequestered disc fragment. Other extradural masses are not excluded and further evalua tion with postcontrast MRI is recommended. CT lumbar spine may be of benefit to further assess the os seous changes and foraminal stenosis. POS: AH
== END 2019-11-27 09:30 | disposition home or self-care (01) ==
LOC: SCSMRI 09:29
PROVIDERS: ATTEND Nurse Practitioner Family
DX: M51.16 Intervertebral disc disorders with radiculopathy, lumbar region (principal); M48.061 Spinal stenosis, lumbar region without neurogenic claudication; R93.7 Abnormal findings on diagnostic imaging of other parts of musculoskeletal system
CPT/HCPCS: 72148

== ENCOUNTER 2020-03-04 10:46 | Outpatient (CLI) | payer MEDICARE, MEDICAID ==
--- NOTE | 2020-03-04 11:47 | CT ---
CT CHEST WITHOUT CONTRAST: Axial tomograms obtained through the chest following a low-dose screening protocol. INDICATION: History of nicotine use. Former smoker for over 20 years. COMPARISON: Comparison is made to CT screening chest exam of 06/13/2018. FINDINGS: There is a grouping of small nodules in the posterior right lower lobe. There is a 5-6 mm nodule wit h 2 adjacent smaller nodules which each measure in the 3 mm range. There is associated linear densit y also adjacent to this small cluster of nodules. These small nodules appear stable when compared to 06/13/2018 exam. There are chronic lung parenchymal changes. Small bullae in the apices appear stable. No other mass or nodule. No effusion or infiltrate. Mediastinum unremarkable with no evidence of adenopathy. Im ages through the upper abdomen unremarkable. Degenerative spine changes which appear stable. IMPRESSION: Stable cluster of small nodules with linear component in the posterior right lower lobe. Recommend c ontinued annual low-dose screening CT. Lung RADS 2, recommend continued annual low-dose screening CT . POS: NELLY
== END 2020-03-04 10:47 | disposition home or self-care (01) ==
LOC: BICCT 10:46
PROVIDERS: ATTEND Nurse Practitioner Adult Health
DX: Z12.2 Encounter for screening for malignant neoplasm of respiratory organs (principal); R91.8 Other nonspecific abnormal finding of lung field; Z87.891 Personal history of nicotine dependence
CPT/HCPCS: G0297